=== PATIENT | female | born 1940 | race Caucasian/White ===

== ENCOUNTER 2016-09-25 13:17 | Outpatient (CLI) | payer MEDICARE, BC ==
--- NOTE | 2016-09-25 16:44 | Mammography Report ---
DIGITAL BILATERAL DIAGNOSTIC MAMMOGRAM: 09/25/2016 CLINICAL HISTORY: A 76-year-old female postlumpectomy left breast 2011 (personal history of breast ca ncer). TECHNIQUE: Routine CC and MLO projections were obtained of the breasts. Left true lateral view. COMPARISON: 08/2015, 04/2014, 08/2013, 12/2012, 07/2012, 10/2011, 04/2010, 12/2007, 04/2007. FINDINGS: Scattered fibroglandular tissue is present within the breasts. There are no dominant tylor s, suspicious microcalcifications, or secondary signs of malignancy. In comparison to the previous st udies, there are no significant changes. Posttreatment deformity in the left breast is stable. ASSESSMENT: NO MAMMOGRAPHIC EVIDENCE OF MALIGNANCY. NO SIGNIFICANT INTERVAL CHANGES. RECOMMENDATION: Screening mammography is recommended annually. BI-RADS category 2 - Benign. STANDARD QUALIFYING STATEMENTS 1. This examination was reviewed with the aid of Computed-Aided Detection (CAD). 2. A negative or benign imaging report should not delay biopsy if clinically suspicious findings are present. Consider surgical consultation if warranted. More than 5% of cancers are not identified by i maging. 3. Dense breasts may obscure an underlying neoplasm. JOB #: [id number] EXT JOB #:[id number]
== END 2016-09-25 13:18 | disposition home or self-care (01) ==
LOC: DI 13:17
PROVIDERS: ATTEND Internal Medicine
DX: C50.912 Malignant neoplasm of unspecified site of left female breast (principal)
CPT/HCPCS: 77066

== ENCOUNTER 2017-10-07 20:40 | Outpatient (CLI) | payer MEDICARE, BC | END 2017-10-07 20:41 | disposition EMS.NT | LOC: EMS 20:40 | PROVIDERS: ATTEND Surgery | DX: Z03.89 Encounter for observation for other suspected diseases and conditions ruled out (principal); W18.39XA Other fall on same level, initial encounter; Y92.009 Unspecified place in unspecified non-institutional (private) residence as the place of occurrence of the external cause ==

== ENCOUNTER 2018-01-25 14:47 | Outpatient (CLI) | payer MEDICARE, BC ==
[2018-01-25 15:49] LABS: BASOPHILS % (AUTO) 0.7 %; EOSINOPHILS # (AUTO) 0.1 10^3/uL (0.0-0.7); EOSINOPHILS % (AUTO) 1.7 %; HGB - HEMOGLOBIN 14.7 g/dL (12.0-16.0); LYMPHOCYTES % (AUTO) 43.1 %; MEAN CORPUSCULAR HGB CONC 33.7 g/dL (32.0-36.0); MEAN CORPUSCULAR VOLUME 94.8 fL (81.0-99.0); MEAN PLATELET VOLUME 8.6 fL (7.9-10.8); MONOCYTES # (AUTO) 0.5 10^3/uL (0.0-1.0); MONOCYTES % (AUTO) 7.4 %; NEUTROPHILS # (AUTO) 3.3 10^3/uL (1.5-6.6); NEUTROPHILS % (AUTO) 47.1 %; PLT - PLATELET COUNT 186 10^3/uL (130-450); WHITE BLOOD COUNT 6.9 x10^3/uL (4.8-10.8)
[2018-01-25 19:35] LABS: RHEUMATOID FACTOR NEGATIVE (Negative)
[2018-01-28 14:32] LABS: ANA SCREEN POSITIVE (NEGATIVE)
== END 2018-01-25 14:48 | disposition home or self-care (01) ==
LOC: LAB 14:47
PROVIDERS: ATTEND Orthopaedic Surgery
DX: M79.642 Pain in left hand (principal)
CPT/HCPCS: 36415; 85025; 85651; 86038; 86140; 86430

== ENCOUNTER 2018-10-29 12:41 | Outpatient (CLI) | payer MEDICARE, BC ==
--- NOTE | 2018-10-29 14:09 | Mammography Report ---
Reason: LT BREAST PAIN Procedure Date: 10/29/2018 Accession Number: [id number] / [id number] Procedure: SHARMILA - Diagnostic Dig Bilat CPT Code: FULL RESULT: EXAM: Diagnostic Dig Bilat DATE: 10/29/2018 1:23 PM CLINICAL HISTORY: Left breast pain. History of left breast cancer. TECHNIQUE: (B) - Bilateral CC and MLO views were obtained. COMPARISON: 09/25/2016, 09/24/2015, and 04/13/2014 PARENCHYMAL PATTERN: (A) - The breasts demonstrate scattered fibroglandular densities bilaterally. FINDINGS: Posttreatment changes in the left breast are stable. There are no suspicious masses, calcifications, or new areas of distortion. IMPRESSION: Benign findings. BI-RADS category 2. RECOMMENDATION: (ANNUAL) - Recommend routine annual screening mammography. BI-RADS CATEGORY: (2) - Benign Findings. STANDARD QUALIFYING STATEMENTS: 1. This examination was not reviewed with the aid of Computer-Aided Detection (CAD). 2. A negative or benign imaging report should not preclude biopsy if clinically suspicious findings are present. 3. Dense breasts may obscure an underlying neoplasm. 4. This examination was reviewed without the aid of 3D breast imaging (tomosynthesis).
== END 2018-10-29 12:42 | disposition home or self-care (01) ==
LOC: DI 12:41
PROVIDERS: ATTEND Internal Medicine
DX: N64.4 Mastodynia (principal); Z85.3 Personal history of malignant neoplasm of breast
CPT/HCPCS: 77066

== ENCOUNTER 2019-01-29 08:15 | Outpatient (CLI) | payer MEDICARE, BC ==
[2019-01-29 08:41] LABS: BASOPHILS # (AUTO) 0.1 10^3/uL (0.0-0.1); BASOPHILS % (AUTO) 0.7 %; EOSINOPHILS # (AUTO) 0.1 10^3/uL (0.0-0.7); EOSINOPHILS % (AUTO) 1.3 %; HGB - HEMOGLOBIN 13.9 g/dL (12.0-16.0); LYMPHOCYTES # (AUTO) 1.7 10^3/uL (1.5-3.5); LYMPHOCYTES % (AUTO) 23.2 %; MEAN CORPUSCULAR HEMOGLOBIN 32.9 pg (27.0-31.0); MEAN CORPUSCULAR HGB CONC 33.7 g/dL (32.0-36.0); MEAN CORPUSCULAR VOLUME 97.9 fL (81.0-99.0); MEAN PLATELET VOLUME 9.6 fL (7.9-10.8); MONOCYTES # (AUTO) 0.5 10^3/uL (0.0-1.0); MONOCYTES % (AUTO) 6.3 %; NEUTROPHILS # (AUTO) 5.1 10^3/uL (1.5-6.6); NEUTROPHILS % (AUTO) 68.1 %; PLT - PLATELET COUNT 173 10^3/uL (130-450); RED BLOOD COUNT 4.22 10^6/uL (4.20-5.40); RED CELL DISTRIBUTION WIDTH 11.9 % (12.0-15.0); WHITE BLOOD COUNT 7.5 x10^3/uL (4.8-10.8)
[2019-01-29 08:58] LABS: ALBUMIN 3.7 g/dL (3.2-5.5); ALBUMIN/GLOBULIN RATIO 1.1 (1.0-2.2); BILIRUBIN,TOTAL 1.3 mg/dL (0.2-1.0); CREATININE 0.6 mg/dL (0.4-1.0); TOTAL PROTEIN 7.2 g/dL (6.7-8.2)
[2019-01-29 09:27] LABS: HEMOGLOBIN A1C 0.52 g/dL; HEMOGLOBIN A1C % 5.3 % (4.6-6.2)
== END 2019-01-29 08:16 | disposition home or self-care (01) ==
LOC: LAB 08:15
PROVIDERS: ATTEND Internal Medicine
DX: R73.01 Impaired fasting glucose (principal); C50.919 Malignant neoplasm of unspecified site of unspecified female breast; R60.9 Edema, unspecified; Z79.899 Other long term (current) drug therapy
CPT/HCPCS: 36415; 80053; 83036; 83880; 84443; 85025

== ENCOUNTER 2019-03-11 09:25 | Outpatient (CLI) | payer MEDICARE, BC ==
[2019-03-11 10:42] LABS: ALBUMIN 3.5 g/dL (3.2-5.5); BILIRUBIN,DIRECT 0.1 mg/dL (0.1-0.5); TOTAL PROTEIN 6.8 g/dL (6.7-8.2)
== END 2019-03-11 09:26 | disposition home or self-care (01) ==
LOC: LAB 09:25
PROVIDERS: ATTEND Podiatrist
DX: B35.1 Tinea unguium (principal)
CPT/HCPCS: 36415; 80076

== ENCOUNTER 2020-04-13 08:50 | Outpatient (CLI) | payer MEDICARE, BC ==
--- NOTE | 2020-04-13 17:21 | MRI Report ---
PROCEDURE: Lumbar Spine W/O INDICATIONS: HERNIATED NUCLEUS PULPOSUS,SPINAL STENOSIS TECHNIQUE: Noncontrast sagittal T1 spin echo and T2 fast echo, sagittal STIR, axial T1 and T2 fast spin echo thr ough the lumbar spine. In cases with scoliosis, additional coronal T2 fast spin echo may be performe d. COMPARISON: None. FINDINGS: Image quality: Excellent. Alignment and Curvature: There is trace L1-L2 and L2-L3 retrolisthesis. There is trace L4-L5 anterol isthesis. Bone Marrow: Reactive endplate changes noted adjacent to the L1-L2, L2-L3, L3-L4 and L4-L5 and L5-S1 discs. No acute vertebral body compression fractures. Spinal Cord: Conus medullaris terminates at the L1-2 disc level. Visualized cord demonstrates raoul l signal and size. Paraspinous Soft Tissues: No paravertebral masses. T12-L1: Loss of disc signal and height. Moderate, diffuse disc bulge. Mild bilateral facet hypertrop hy. Hooa-gk-kxpmkwwu narrowing of the central canal. Severe right and moderate left neural foraminal narrowing with compression of the exiting right T12 nerve root. L1-L2: Loss of disc signal and height. Moderate, diffuse disc bulge. Moderate bilateral facet hype rtrophy. Mild to moderate narrowing of the central canal. Moderate bilateral neural foraminal narrowi ng. No neural compression. L2-L3: Loss of disc signal and height. Mild, diffuse disc bulge. Moderate facet and moderate ligam entum flavum hypertrophy. Severe narrowing of the central canal with compression of the nerve roots o f the cauda equina. Moderate bilateral neural foraminal narrowing. L3-L4: Loss of disc signal. Mild, diffuse disc bulge. Severe bilateral facet hypertrophy. Moderate ligamentum flavum hypertrophy. Severe narrowing of the central canal with compression of the nerve ro ots of the cauda equina. Mild right and moderate left neural foraminal narrowing. L4-L5: Loss of disc signal. Mild, diffuse disc bulge. Severe bilateral facet hypertrophy. Severe li gamentum flavum hypertrophy. Severe narrowing of the central canal with compression of the nerve root s of the cauda equina. Moderate to severe bilateral neural foraminal narrowing with slight compressio n of the exiting bilateral L4 nerve roots. L5-S1: Loss of disc signal. Minimal, diffuse disc bulge. Bpcw-hf-tckqyebv bilateral facet hypertrop hy. No central stenosis. No neural foraminal narrowing. No neural compression. IMPRESSION: 1. Multilevel degenerative disc disease. 2. Multilevel facet arthropathy. 3. Severe L2-L3, L3-L4 and L4-L5 central canal narrowing with compression of the nerve roots of the c auda equina. 4. Severe right T12-L1 neural foraminal narrowing with compression of the exiting right T12 nerve jessica t. Moderate to severe bilateral L4-L5 neural foraminal narrowing with slight compression of the exiti ng bilateral L4 nerve roots. Reviewed by: Freida Gage MD, PhD on 04/13/2020 4:20 PM [facility] Approved by: Freida Gage MD, PhD on 04/13/2020 4:20 PM [facility] Station ID: [id number]
== END 2020-04-13 08:51 | disposition home or self-care (01) ==
LOC: DI 08:50
PROVIDERS: ATTEND Internal Medicine
DX: M51.35 Other intervertebral disc degeneration, thoracolumbar region (principal); M48.05 Spinal stenosis, thoracolumbar region; M47.815 Spondylosis without myelopathy or radiculopathy, thoracolumbar region; M51.36 Other intervertebral disc degeneration, lumbar region; M48.061 Spinal stenosis, lumbar region without neurogenic claudication; M47.816 Spondylosis without myelopathy or radiculopathy, lumbar region; M51.37 Other intervertebral disc degeneration, lumbosacral region; M48.07 Spinal stenosis, lumbosacral region; M47.817 Spondylosis without myelopathy or radiculopathy, lumbosacral region
CPT/HCPCS: 72148

== ENCOUNTER 2020-05-05 08:36 | Outpatient (CLI) | payer MEDICARE, BC ==
--- NOTE | 2020-05-06 14:42 | Mammography Report ---
BILATERAL DIGITAL SCREENING MAMMOGRAM 3D/2D: 05/05/2020 CLINICAL: Routine screening. Comparison is made to exams dated: 10/29/2018 mammogram, 09/25/2016 mammogram, 09/24/2015 mammogram, mammogram, and 08/07/2013 mammogram - [facility]. There are scattered fibro glandular elements in both breasts. There are benign calcifications in the left breast. There also are benign post operative findings in the left breast. No significant masses, calcifications, or other findings are seen in either breast. There has been no significant interval change. IMPRESSION: BENIGN There is no mammographic evidence of malignancy. A 1 year screening mammogram is recommended. This exam was interpreted at Station ID: [id number]. NOTE: For mammograms, a report in lay terms will be sent to the patient. Approximately 15% of breast malignancies will not be visualized mammographically. In the management of a palpable breast mass, a negative mammogram must not discourage biopsy of a clinically suspicious lesion. Electronically Signed By: Franklyn Haskins M.D. [facility] [place]:05/05/2020 12:35:40 ACR BI-RADS Category 2: Benign Finding(s) 3342F PARENCHYMAL PATTERN: (A) - The breast(s) demonstrate(s) scattered fibroglandular densities. BI-RADS CATEGORY: (2) - 2 RECOMMENDATION: (ANNUAL) - Recommend routine annual screening mammography. [id number] 1 year screening LATERALITY: (B)
== END 2020-05-05 08:37 | disposition home or self-care (01) ==
LOC: DI 08:36
DX: Z12.31 Encounter for screening mammogram for malignant neoplasm of breast (principal)
CPT/HCPCS: 77063; 77067

== ENCOUNTER 2020-05-05 09:13 | Outpatient (CLI) | payer MEDICARE, BC ==
[2020-05-06 09:46] LABS: HEPATITIS B SURFACE ANTIGEN NON-REACTIVE (NON-REACTIVE); HEPATITIS C ANTIBODY NON-REACTIVE (NON-REACTIVE)
[2020-05-07 10:26] LABS: COMPLEMENT COMPONENT C3C 147 mg/dL (83-193); COMPLEMENT COMPONENT C4C 33 mg/dL (15-57)
[2020-05-07 13:57] LABS: ANA SCREEN NEGATIVE (NEGATIVE)
== END 2020-05-05 09:14 | disposition home or self-care (01) ==
LOC: LAB 09:13
PROVIDERS: ATTEND Internal Medicine Rheumatology
DX: R76.8 Other specified abnormal immunological findings in serum (principal); M25.50 Pain in unspecified joint
CPT/HCPCS: 36415; 81599; 85651; 86038; 86140; 86160; 86480; 86803; 87340

== ENCOUNTER 2020-06-30 09:45 | Outpatient (CLI) | payer MEDICARE, BC ==
[2020-06-30 10:08] LABS: BASOPHILS % (AUTO) 0.6 %; EOSINOPHILS % (AUTO) 0.7 %; HGB - HEMOGLOBIN 12.9 g/dL (12.0-16.0); LYMPHOCYTES # (AUTO) 1.4 10^3/uL (1.5-3.5); LYMPHOCYTES % (AUTO) 25.2 %; MEAN CORPUSCULAR HEMOGLOBIN 31.9 pg (27.0-31.0); MEAN CORPUSCULAR HGB CONC 31.9 g/dL (32.0-36.0); MEAN CORPUSCULAR VOLUME 100.2 fL (81.0-99.0); MEAN PLATELET VOLUME 9.6 fL (7.9-10.8); MONOCYTES # (AUTO) 0.4 10^3/uL (0.0-1.0); MONOCYTES % (AUTO) 7.5 %; NEUTROPHILS # (AUTO) 3.6 10^3/uL (1.5-6.6); NEUTROPHILS % (AUTO) 65.8 %; PLT - PLATELET COUNT 171 10^3/uL (130-450); RED BLOOD COUNT 4.04 10^6/uL (4.20-5.40); WHITE BLOOD COUNT 5.4 x10^3/uL (4.8-10.8)
[2020-06-30 10:23] LABS: ALBUMIN 3.6 g/dL (3.2-5.5); ALBUMIN/GLOBULIN RATIO 1.1 (1.0-2.2); BILIRUBIN,TOTAL 0.6 mg/dL (0.2-1.0); CALCIUM 8.7 mg/dL (8.5-10.3); CREATININE 0.6 mg/dL (0.4-1.0); TOTAL PROTEIN 6.9 g/dL (6.7-8.2)
== END 2020-06-30 09:46 | disposition home or self-care (01) ==
LOC: LAB 09:45
PROVIDERS: ATTEND Internal Medicine Rheumatology
DX: M06.9 Rheumatoid arthritis, unspecified (principal); M05.79 Rheumatoid arthritis with rheumatoid factor of multiple sites without organ or systems involvement; M25.50 Pain in unspecified joint; M18.9 Osteoarthritis of first carpometacarpal joint, unspecified
CPT/HCPCS: 36415; 80053; 85025; 85651

== ENCOUNTER 2020-07-29 18:03 | Outpatient (CLI) | payer MEDICARE, BC ==
--- NOTE | 2020-07-29 17:49 | XRAY Report ---
PROCEDURE: Shoulder 4 View RT INDICATIONS: R SHOULDER PX TECHNIQUE: 4 views of the shoulder were acquired. COMPARISON: None. FINDINGS: Bones: No fractures or dislocations. No suspicious bony lesions. Visualized ribs appear intact. Se franklin acromioclavicular joint osteoarthritis. Superior subluxation humeral head concerning for chronic rotator cuff tear. Soft tissues: No suspicious soft tissue calcifications. IMPRESSION: 1. Superior subluxation of the humeral head concerning for chronic rotator cuff tear. 2. Severe acromioclavicular joint osteoarthritis. 3. No fracture. No acute osseous lesion. If there persistent symptoms or continued clinical concern f or pathology, then repeat plain film radiographs (7-10 days) or advanced imaging (CT, MR, bone scan) should be considered for further evaluation. Reviewed by: Freida Gage MD, PhD on 07/29/2020 4:47 PM [facility] Approved by: Freida Gage MD, PhD on 07/29/2020 4:47 PM [facility] Station ID: [id number]
== END 2020-07-29 23:59 | disposition home or self-care (01) ==
LOC: DI.N 18:03
PROVIDERS: ATTEND Physician Assistant
DX: M19.011 Primary osteoarthritis, right shoulder (principal); S43.001A Unspecified subluxation of right shoulder joint, initial encounter

== ENCOUNTER 2020-07-30 12:15 | Outpatient (CLI) | payer MEDICARE, BC ==
--- NOTE | 2020-07-30 16:25 | XRAY Report ---
PROCEDURE: Knee 3 View RT INDICATIONS: LOW BACK PAIN, RT KNEE PAIN TECHNIQUE: 3 views of the right knee(s) were acquired. COMPARISON: None. FINDINGS: Bones: No fractures or dislocations. No suspicious bony lesions. There is moderate medial and mode rate to severe patellofemoral compartment narrowing. Chondrocalcinosis is present. Significant periar ticular osteophytes are noted at the patella as well as patellar subluxation. Soft tissues: No joint effusion. No suspicious soft tissue calcifications. IMPRESSION: Prominent medial patellofemoral compartment narrowing with prominent patellar osteophyte s. Reviewed by: Yessica Lorenzana MD on 07/30/2020 4:24 PM PST Approved by: Yessica Lorenzana MD on 07/30/2020 4:24 PM PST Station ID: [id number]
--- NOTE | 2020-07-30 16:26 | XRAY Report ---
PROCEDURE: Lumbar Spine 2 View INDICATIONS: LOW BACK PAIN, RT KNEE PAIN TECHNIQUE: 2 views of the lumbar spine were acquired. COMPARISON: MRI lumbar spine 04/13/2020 FINDINGS: Bones: 5 yet-tao-sqwyhry vertebrae are present. There is trace retrolisthesis of L1 on L2. Multilev el moderate to severe degenerative disc space narrowing most severe at L5-S1. Moderate to severe fora bon narrowing is noted from L3-4 through L5-S1 as well as L1-L2. Nonbridging anterior osteophytes a re present. No vertebral body compression fractures. No suspicious bony lesions. Soft tissues: Overlying bowel gas pattern is normal. No suspicious soft tissue calcifications. IMPRESSION: Multilevel degenerative changes most severe at L5-S1. Reviewed by: Yessica Lorenzana MD on 07/30/2020 4:25 PM PST Approved by: Yessica Lorenzana MD on 07/30/2020 4:25 PM PST Station ID: [id number]
== END 2020-07-30 12:16 | disposition home or self-care (01) ==
LOC: DI 12:15
PROVIDERS: ATTEND Internal Medicine
DX: M47.817 Spondylosis without myelopathy or radiculopathy, lumbosacral region (principal); M25.561 Pain in right knee; M25.761 Osteophyte, right knee

== ENCOUNTER 2020-09-15 19:56 | Outpatient (CLI) | payer MEDICARE, BC | END 2020-09-15 19:57 | disposition EMS.NT | LOC: EMS 19:56 | DX: Z03.89 Encounter for observation for other suspected diseases and conditions ruled out (principal) ==

== ENCOUNTER 2020-09-30 10:38 | Outpatient (CLI) | payer MEDICARE, BC ==
[2020-09-30 11:12] LABS: BASOPHILS % (AUTO) 0.5 %; EOSINOPHILS % (AUTO) 0.3 %; HCT - HEMATOCRIT 38.6 % (37.0-47.0); HGB - HEMOGLOBIN 12.8 g/dL (12.0-16.0); LYMPHOCYTES # (AUTO) 1.5 10^3/uL (1.5-3.5); LYMPHOCYTES % (AUTO) 19.9 %; MEAN CORPUSCULAR HEMOGLOBIN 32.5 pg (27.0-31.0); MEAN CORPUSCULAR HGB CONC 33.2 g/dL (32.0-36.0); MEAN PLATELET VOLUME 9.1 fL (7.9-10.8); MONOCYTES # (AUTO) 0.4 10^3/uL (0.0-1.0); NEUTROPHILS # (AUTO) 5.7 10^3/uL (1.5-6.6); PLT - PLATELET COUNT 186 10^3/uL (130-450); RED BLOOD COUNT 3.94 10^6/uL (4.20-5.40); RED CELL DISTRIBUTION WIDTH 14.1 % (12.0-15.0); WHITE BLOOD COUNT 7.7 x10^3/uL (4.8-10.8)
[2020-09-30 11:33] LABS: ALBUMIN 3.8 g/dL (3.2-5.5); ALBUMIN/GLOBULIN RATIO 1.3 (1.0-2.2); CALCIUM 9.2 mg/dL (8.5-10.3); CREATININE 0.7 mg/dL (0.4-1.0); POTASSIUM 4.2 mmol/L (3.5-5.0); TOTAL PROTEIN 6.8 g/dL (6.7-8.2)
--- OUTSIDE RECORDS SUMMARY | 2020-10-06 00:46 | EXTERNAL MEDICAL SUMMARY RPT | Continuity of Care Document ---
:1940 Demographics Phone Unavailable Preferred Language Grenadian Marital Status Unknown Restorationist Affiliation Unknown Race Unknown Ethnic Group Unknown Author Organization [place] Address [address] [phone] Phone Care Team Providers Name Role Phone Dannhaur Unavailable Unavailable Dannhaur Unavailable Unavailable PA-C Unavailable Unavailable Problems date description facility [id number] Pain in joint involving shoulder region [facility] [id number] Pain in right shoulder [facility] [id number] Pain of right shoulder joint [facility] [id number] SHOULDER COMPLETE 3 VIEW [facility] [id number] Contact with and (suspected) exposure t o COVID-19 [facility] [id number] Other intervertebral disc displacement, lumbar region [facility] [id number] Spinal stenosis, site unspecified [facility] Medications date description facility [id number] Methotrexate 2.5 MG Oral Tablet [facility] 74084392 Atenolol 25 MG Oral Tablet [facility] 81053233 Omeprazole 20 MG Enteric Coated Capsule [facility] 18256162 Melatonin 1 MG Oral Tablet [facility] ital 88400768 Citalopram [address] [facility] spital 53651396 Folic Acid 1 MG Oral Tablet [facility] pital 78858124 Trazodone Hydrochloride 50 MG Oral Tabl et [facility] 62829411 Acetaminophen 500 MG Oral Tablet [facility] 28525509 Betamethasone 3 MG/ML / Betamethasone a cetate 3 MG/ML [facility] Injectable Suspension Procedures date description facility [id number] [facility] date description facility [id number] [facility] date description facility [id number] [facility] date description facility [id number] [facility] date description facility [id number] [facility] date description facility [id number] [facility] date description facility [id number] [facility] date description facility [id number] [facility] Vital Signs date measurement value source [id number] BMI 28.3 kg/m2 33351097 BP_diastolic 80 mm[Hg] 91232532 BP_systolic 134 mm[Hg] 15238232 heart_rate 82 /min 20200802 height_metric 160.02 cm 93890774 height_standard 63 in 20200802 temperature_metric 36.67 C 80070984 temperature_standard 98 F 20200802 weight_metric 72.57 kg 42437041 weight_standard 159.99 lb date measurement value source 20200830 BP_diastolic 80 mm[Hg] 20200830 BP_systolic 140 mm[Hg] 20200830 heart_rate 63 /min 20200830 height_metric 160.02 cm 20200830 height_standard 63 in 20200830 temperature_metric 36.78 C 20200830 temperature_standard 98.2 F date measurement value source 20200914 heart_rate 90 /min 20200914 temperature_metric 36.28 C 20200914 temperature_standard 97.3 F date measurement value source 20200916 BP_diastolic 58 mm[Hg] 20200916 BP_systolic 125 mm[Hg] 20200916 heart_rate 77 /min 20200916 respiration_rate 12 /min 20200916 temperature_metric 37.06 C 20200916 temperature_standard 98.7 F Social History date description facility [id number]
== END 2020-09-30 10:39 | disposition home or self-care (01) ==
LOC: LAB 10:38
PROVIDERS: ATTEND Internal Medicine Rheumatology
DX: M06.9 Rheumatoid arthritis, unspecified (principal); M15.9 Polyosteoarthritis, unspecified
CPT/HCPCS: 36415; 80053; 85025; 85651